=== PATIENT | male | born 1960 | race African-American/Black ===

== ENCOUNTER 2021-05-19 01:59 | Inpatient (IN) | payer OTHER ==
[2021-05-19] MEDS ORDERED: ACETAMINOPHEN 500 MG TABLET (FP) PO ONE (02:57)
[2021-05-19] MEDS ORDERED: ACETAMINOPHEN 500 MG TABLET (FP) ONE (03:06)
[2021-05-19] MEDS ORDERED: morphine CARPU-JECT 4 MG/1 ML DISP.SYRIN IVPUSH ONE (03:14)
[2021-05-19] MEDS ORDERED: morphine SULFATE 4 MG/ML VIAL ONE ×2 (03:26→08:22)
[2021-05-19 03:51] LABS: BASO % 0.5 % (0-2.0); EOS % 2.3 % (0-4.5); HEMATOCRIT 29.3 % (35.4-49); HEMOGLOBIN 9.9 GM/dL (11.7-16.9); LYMPH % 13.7 % (8-40); MCH 25.1 pg (25.7-33.7); MCHC 33.9 g/dl (32.0-35.9); MEAN PLT VOLUME 7.9 fl (7.5-11.1); MONO % 7.7 % (3.8-10.2); NEUT % 75.8 % (42.8-82.8); PLATELET COUNT 331 10^3/uL (134-434); RBC 3.95 M/mm3 (4.00-5.60); RDW 16.7 % (11.9-15.9); WHITE BLOOD COUNT 11.9 K/mm3 (4.0-10.0)
[2021-05-19 03:53] VITALS: BMI 32.3
[2021-05-19 04:00] LABS: INR 1.08 (0.83-1.09); PROTHROMBIN TIME (PATIENT) 12.4 SEC (9.7-13.0)
[2021-05-19 04:10] LABS: ALBUMIN 3.8 g/dl (3.4-5.0); BLOOD UREA NITROGEN 11.8 mg/dL (7-18); CALCIUM 8.6 mg/dL (8.5-10.1)
[2021-05-19 04:15] LABS: BILIRUBIN,TOTAL 1.2 mg/dL (0.2-1); TOT PROT 7.4 g/dl (6.4-8.2)
[2021-05-19] MEDS ORDERED: morphine SULFATE 4 MG/ML VIAL IVPUSH PRN (05:13)
[2021-05-19] MEDS ORDERED: LACTATED RINGERS SOLUTION 1,000 ML IV SCH (05:15)
[2021-05-19] MEDS ORDERED: ACETAMINOPHEN 1000 MG/100 ML BAG IVPB PRN ×2 (05:19→22:42)
[2021-05-19] MEDS ORDERED: ONDANSETRON 4 MG/2 ML VIAL IVPUSH PRN ×2 (05:44→22:42)
[2021-05-19 06:39] LABS: CALCIUM 8.8 mg/dL (8.5-10.1)
[2021-05-19 06:40] LABS: ALBUMIN 4.1 g/dl (3.4-5.0); BLOOD UREA NITROGEN 12.1 mg/dL (7-18); MAGNESIUM 2.2 mg/dL (1.8-2.4)
[2021-05-19 06:41] LABS: BASO % 0.3 % (0-2.0); EOS % 0.5 % (0-4.5); HEMATOCRIT 30.1 % (35.4-49); MCH 24.8 pg (25.7-33.7); MCHC 33.3 g/dl (32.0-35.9); MEAN CELL VOLUME 74.4 fl (80-96); MEAN PLT VOLUME 8.3 fl (7.5-11.1); MONO % 5.8 % (3.8-10.2); NEUT % 83.4 % (42.8-82.8); PLATELET COUNT 350 10^3/uL (134-434); RBC 4.05 M/mm3 (4.00-5.60); RDW 16.5 % (11.9-15.9); WHITE BLOOD COUNT 14.4 K/mm3 (4.0-10.0)
[2021-05-19 06:43] LABS: PHOSPHOROUS 2.8 mg/dL (2.5-4.9)
[2021-05-19 06:44] LABS: BILIRUBIN,TOTAL 1.4 mg/dL (0.2-1)
[2021-05-19 06:45] LABS: TOT PROT 7.7 g/dl (6.4-8.2)
[2021-05-19] MEDS: INSULIN SLIDING SCALE (NOVOLOG) 1 VIAL SQ SCH ×4 (08:08→22:57)
[2021-05-19] MEDS ORDERED: FOLIC ACID 1 MG TABLET (FP) ONE (08:21)
[2021-05-19 08:34] LABS: EPI CELLS 3 /uL (0-25.1); HYALINE CASTS 0 /uL (0-3.1); PH,URINE 5.5 (5.0-8.0); URINE APPEARANCE CLEAR; URINE BACTERIA 3 /uL (0-1359); URINE BILIRUBIN NEGATIVE (NEGATIVE); URINE COLOR YELLOW; URINE GLUCOSE (UA) NEGATIVE (NEGATIVE); URINE KETONE NEGATIVE (NEGATIVE); URINE LEUK ESTERASE NEGATIVE (NEGATIVE); URINE NITRITE NEGATIVE (NEGATIVE); URINE PROTEIN 1+ (NEGATIVE); URINE RBC 5 /uL (0-23.9); URINE UROBILINOGEN 0.2 mg/dL (0.2-1.0); URINE WBC 3 /uL (0-25.8)
[2021-05-19] MEDS ORDERED: FOLIC ACID 1 MG TABLET (FP) PO SCH (10:00)
[2021-05-19 10:50] LABS: RETICULOCYTES 1.96 % (0.5-1.5)
[2021-05-19] MEDS ORDERED: DEXMEDETOMIDINE HCL 200 MCG/2 ML IVPB ONE (17:43)
[2021-05-19] MEDS ORDERED: BUPIVACAINE HCL/PF 0.5% (5MG/ML) 10 ML VIAL ONE ×2 (17:43→17:46)
[2021-05-19] MEDS ORDERED: LIDOCAINE HCL 1%, 10 MG/ML (20ML VIAL) ONE (17:46)
[2021-05-19] MEDS ORDERED: MIDAZOLAM HCL 2 MG/2 ML SINGLE DOSE VIAL ONE (17:55)
[2021-05-19] MEDS ORDERED: PROPOFOL 20 ML ONE ×8 (17:56→21:45)
[2021-05-19] MEDS ORDERED: ceFAZolin SODIUM 1 GM VIAL IVPB ONE (18:20)
[2021-05-19] MEDS ORDERED: ePHEDrine SULFATE 50 MG/1 ML AMPULE ONE (18:23)
[2021-05-19] MEDS ORDERED: LIDOCAINE HCL 1%, 10 MG/ML (50 mL VIAL) INF ONE (22:14)
[2021-05-19] MEDS ORDERED: BUPIVACAINE HCL/PF 0.5% (5 MG/ML) 30 ML VIAL IJ ONE (22:15)
[2021-05-19] MEDS ORDERED: ACETAMINOPHEN INJECTION 100 ML IVPB ONE (23:10)
[2021-05-19] MEDS: LACTATED RINGERS SOLUTION 1,000 ML IV SCH (23:40)
[2021-05-20] MEDS ORDERED: ceFAZolin SODIUM 1 GM VIAL ONE ×3 (05:20→18:25)
[2021-05-20] MEDS ORDERED: DEXTROSE 5%-WATER - 50 ML IVPB ONE ×3 (05:20→18:25)
[2021-05-20] MEDS: LACTATED RINGERS SOLUTION 1,000 ML IV SCH ×2 (06:02→18:29)
[2021-05-20] MEDS: CHOLECALCIFEROL (VIT D3) 1,000 UNIT (25 MCG) TABLET PO SCH ×2 (06:03→11:47)
[2021-05-20] MEDS: CEFAZOLIN 1 GM in DEXTROSE 5%-WATER - 50 ML IVPB SCH ×3 (06:04→18:28)
[2021-05-20] MEDS: INSULIN SLIDING SCALE (NOVOLOG) 1 VIAL SQ SCH ×4 (06:17→21:18)
[2021-05-20 08:33] LABS: HEMATOCRIT 26.5 % (35.4-49); HEMOGLOBIN 9.4 GM/dL (11.7-16.9); MCH 25.9 pg (25.7-33.7); MCHC 35.5 g/dl (32.0-35.9); MEAN CELL VOLUME 73.1 fl (80-96); MEAN PLT VOLUME 8.5 fl (7.5-11.1); PLATELET COUNT 270 10^3/uL (134-434); RBC 3.62 M/mm3 (4.00-5.60); RDW 16.9 % (11.9-15.9); WHITE BLOOD COUNT 14.7 K/mm3 (4.0-10.0)
[2021-05-20 08:50] LABS: CALCIUM 8.6 mg/dL (8.5-10.1)
[2021-05-20 08:51] LABS: ALBUMIN 3.8 g/dl (3.4-5.0)
[2021-05-20 08:56] LABS: BILIRUBIN,TOTAL 1.5 mg/dL (0.2-1)
[2021-05-20] MEDS ORDERED: FOLIC ACID 1 MG TABLET (FP) PO SCH (10:00)
[2021-05-20] MEDS ORDERED: PATIENT'S OWN MEDICATION (NON-FORMULARY) (Amlodipine/Valsartan [Exforge 5-320 Mg Tablet] 1 PO SCH (10:00)
[2021-05-20] MEDS ORDERED: amLODIPine BESYLATE 5 MG TABLET (FP) PO SCH (10:00)
[2021-05-20] MEDS ORDERED: VALSARTAN 160 MG TABLET PO SCH (10:00)
[2021-05-20] MEDS: morphine SULFATE 4 MG/ML VIAL IVPUSH PRN (11:48)
[2021-05-20] MEDS: VALSARTAN 160 MG TABLET PO SCH (11:48)
[2021-05-20] MEDS: FOLIC ACID 1 MG TABLET (FP) PO SCH (11:50)
[2021-05-20] MEDS: amLODIPine BESYLATE 5 MG TABLET (FP) PO SCH (11:51)
[2021-05-20] MEDS: DOCUSATE SODIUM 100 MG CAPSULE (FP) PO SCH (21:28)
[2021-05-20] MEDS: ENOXAPARIN NA (PORCINE) 40 MG/0.4 ML DISP.SYRIN SQ SCH (21:28)
[2021-05-21] MEDS: morphine SULFATE 4 MG/ML VIAL IVPUSH PRN ×3 (01:12→20:51)
[2021-05-21] MEDS ORDERED: ceFAZolin SODIUM 1 GM VIAL ONE (01:16)
[2021-05-21] MEDS ORDERED: DEXTROSE 5%-WATER - 50 ML IVPB ONE (01:16)
[2021-05-21] MEDS: CEFAZOLIN 1 GM in DEXTROSE 5%-WATER - 50 ML IVPB SCH (01:20)
[2021-05-21] MEDS: LACTATED RINGERS SOLUTION 1,000 ML IV SCH ×3 (02:52→23:40)
[2021-05-21] MEDS: DOCUSATE SODIUM 100 MG CAPSULE (FP) PO SCH ×3 (06:23→21:02)
[2021-05-21] MEDS: INSULIN SLIDING SCALE (NOVOLOG) 1 VIAL SQ SCH ×4 (06:24→21:02)
[2021-05-21] MEDS: FERROUS SO4 325 MG TABLET (FP) PO SCH (08:40)
[2021-05-21 09:23] LABS: HEMATOCRIT 26.5 % (35.4-49); HEMOGLOBIN 8.9 GM/dL (11.7-16.9); MCHC 33.7 g/dl (32.0-35.9); MEAN CELL VOLUME 74.1 fl (80-96); MEAN PLT VOLUME 8.6 fl (7.5-11.1); PLATELET COUNT 288 10^3/uL (134-434); RBC 3.57 M/mm3 (4.00-5.60); RDW 16.5 % (11.9-15.9); WHITE BLOOD COUNT 17.5 K/mm3 (4.0-10.0)
[2021-05-21] MEDS: ENOXAPARIN NA (PORCINE) 40 MG/0.4 ML DISP.SYRIN SQ SCH (09:31)
[2021-05-21] MEDS: VALSARTAN 160 MG TABLET PO SCH (09:32)
[2021-05-21] MEDS: CHOLECALCIFEROL (VIT D3) 1,000 UNIT (25 MCG) TABLET PO SCH (09:32)
[2021-05-21] MEDS: amLODIPine BESYLATE 5 MG TABLET (FP) PO SCH (09:32)
[2021-05-21] MEDS: FOLIC ACID 1 MG TABLET (FP) PO SCH (09:32)
[2021-05-21 09:57] LABS: ALBUMIN 3.6 g/dl (3.4-5.0); BLOOD UREA NITROGEN 8.7 mg/dL (7-18); CALCIUM 8.7 mg/dL (8.5-10.1)
[2021-05-21 10:01] LABS: CREATININE 0.9 mg/dL (0.55-1.3)
[2021-05-21 10:02] LABS: BILIRUBIN,TOTAL 2.6 mg/dL (0.2-1)
[2021-05-21 10:58] LABS: EPI CELLS 3 /uL (0-25.1); HYALINE CASTS 0 /uL (0-3.1); URINE APPEARANCE CLEAR; URINE BACTERIA 0 /uL (0-1359); URINE BILIRUBIN NEGATIVE (NEGATIVE); URINE COLOR YELLOW; URINE GLUCOSE (UA) NEGATIVE (NEGATIVE); URINE KETONE 1+ (NEGATIVE); URINE LEUK ESTERASE NEGATIVE (NEGATIVE); URINE NITRITE NEGATIVE (NEGATIVE); URINE PROTEIN 1+ (NEGATIVE); URINE RBC 5 /uL (0-23.9); URINE WBC 1 /uL (0-25.8)
[2021-05-21] MEDS: ACETAMINOPHEN 325 MG TABLET (FP) PO PRN (20:54)
[2021-05-22] MEDS: DOCUSATE SODIUM 100 MG CAPSULE (FP) PO SCH ×3 (05:15→22:11)
[2021-05-22] MEDS: INSULIN SLIDING SCALE (NOVOLOG) 1 VIAL SQ SCH ×4 (07:15→22:14)
[2021-05-22] MEDS: FERROUS SO4 325 MG TABLET (FP) PO SCH (08:08)
[2021-05-22] MEDS: amLODIPine BESYLATE 5 MG TABLET (FP) PO SCH (09:13)
[2021-05-22] MEDS: CHOLECALCIFEROL (VIT D3) 1,000 UNIT (25 MCG) TABLET PO SCH (09:13)
[2021-05-22] MEDS: ENOXAPARIN NA (PORCINE) 40 MG/0.4 ML DISP.SYRIN SQ SCH (09:14)
[2021-05-22] MEDS: FOLIC ACID 1 MG TABLET (FP) PO SCH (09:14)
[2021-05-22] MEDS: VALSARTAN 160 MG TABLET PO SCH (09:14)
[2021-05-22] MEDS: LACTATED RINGERS SOLUTION 1,000 ML IV SCH (09:18)
[2021-05-22 09:55] LABS: BASO % 0.4 % (0-2.0); EOS % 0.8 % (0-4.5); HEMATOCRIT 25.4 % (35.4-49); HEMOGLOBIN 8.7 GM/dL (11.7-16.9); LYMPH % 9.9 % (8-40); MCH 25.1 pg (25.7-33.7); MCHC 34.3 g/dl (32.0-35.9); MEAN CELL VOLUME 73.2 fl (80-96); MEAN PLT VOLUME 8.9 fl (7.5-11.1); MONO % 11.5 % (3.8-10.2); NEUT % 77.4 % (42.8-82.8); PLATELET COUNT 274 10^3/uL (134-434); RBC 3.47 M/mm3 (4.00-5.60); RDW 16.5 % (11.9-15.9); WHITE BLOOD COUNT 17.6 K/mm3 (4.0-10.0)
[2021-05-22 10:18] LABS: ALBUMIN 3.3 g/dl (3.4-5.0); CALCIUM 8.6 mg/dL (8.5-10.1)
[2021-05-22 10:22] LABS: BILIRUBIN,TOTAL 2.4 mg/dL (0.2-1); TOT PROT 6.7 g/dl (6.4-8.2)
[2021-05-22] MEDS: morphine SULFATE 4 MG/ML VIAL IVPUSH PRN ×2 (11:43→22:23)
[2021-05-22 16:19] LABS: BF WBC & OTHER NUCLEATED CELLS 804 /mm3
[2021-05-22 16:26] LABS: BODY FLUID MACROPHAGES 16 %; BODY FLUID MONOCYTE 10 %
[2021-05-22 16:38] LABS: CRYSTALS,SYNOVIAL FLUID NEGATIVE
[2021-05-23] MEDS: DOCUSATE SODIUM 100 MG CAPSULE (FP) PO SCH ×3 (06:24→22:53)
[2021-05-23] MEDS: ENOXAPARIN NA (PORCINE) 40 MG/0.4 ML DISP.SYRIN SQ SCH (09:59)
[2021-05-23] MEDS: FOLIC ACID 1 MG TABLET (FP) PO SCH (10:00)
[2021-05-23] MEDS: amLODIPine BESYLATE 5 MG TABLET (FP) PO SCH (10:00)
[2021-05-23] MEDS: FERROUS SO4 325 MG TABLET (FP) PO SCH (10:00)
[2021-05-23] MEDS: VALSARTAN 160 MG TABLET PO SCH (10:00)
[2021-05-23] MEDS: CHOLECALCIFEROL (VIT D3) 1,000 UNIT (25 MCG) TABLET PO SCH (10:00)
[2021-05-23 10:24] LABS: BASO % 0.2 % (0-2.0); EOS % 2.1 % (0-4.5); HEMATOCRIT 24.9 % (35.4-49); HEMOGLOBIN 8.3 GM/dL (11.7-16.9); LYMPH % 10.6 % (8-40); MCH 24.5 pg (25.7-33.7); MCHC 33.4 g/dl (32.0-35.9); MEAN CELL VOLUME 73.4 fl (80-96); MEAN PLT VOLUME 8.8 fl (7.5-11.1); MONO % 12.1 % (3.8-10.2); PLATELET COUNT 289 10^3/uL (134-434); RBC 3.39 M/mm3 (4.00-5.60); RDW 16.8 % (11.9-15.9); WHITE BLOOD COUNT 15.2 K/mm3 (4.0-10.0)
[2021-05-23 10:55] LABS: CALCIUM 8.5 mg/dL (8.5-10.1)
[2021-05-23 10:56] LABS: BLOOD UREA NITROGEN 10.4 mg/dL (7-18)
[2021-05-23 11:01] LABS: BILIRUBIN,TOTAL 1.9 mg/dL (0.2-1); TOT PROT 6.6 g/dl (6.4-8.2)
[2021-05-23] MEDS: INSULIN SLIDING SCALE (NOVOLOG) 1 VIAL SQ SCH ×4 (12:05→22:59)
[2021-05-23] MEDS: morphine SULFATE 4 MG/ML VIAL IVPUSH PRN ×2 (14:24→22:59)
[2021-05-24] MEDS: INSULIN SLIDING SCALE (NOVOLOG) 1 VIAL SQ SCH ×4 (06:08→21:56)
[2021-05-24] MEDS: DOCUSATE SODIUM 100 MG CAPSULE (FP) PO SCH ×3 (06:08→21:56)
[2021-05-24 08:01] LABS: HEMATOCRIT 22.9 % (35.4-49); HEMOGLOBIN 7.9 GM/dL (11.7-16.9); MCH 25.1 pg (25.7-33.7); MCHC 34.5 g/dl (32.0-35.9); MEAN CELL VOLUME 72.7 fl (80-96); MEAN PLT VOLUME 8.2 fl (7.5-11.1); PLATELET COUNT 348 10^3/uL (134-434); RBC 3.15 M/mm3 (4.00-5.60); RDW 17.2 % (11.9-15.9); WHITE BLOOD COUNT 12.6 K/mm3 (4.0-10.0)
[2021-05-24 08:25] LABS: BLOOD UREA NITROGEN 10.4 mg/dL (7-18); CALCIUM 8.5 mg/dL (8.5-10.1)
[2021-05-24 08:27] LABS: CREATININE 0.9 mg/dL (0.55-1.3)
[2021-05-24 08:28] LABS: BILIRUBIN,TOTAL 1.5 mg/dL (0.2-1); TOT PROT 6.3 g/dl (6.4-8.2)
[2021-05-24] MEDS: FERROUS SO4 325 MG TABLET (FP) PO SCH (08:30)
[2021-05-24] MEDS: ENOXAPARIN NA (PORCINE) 40 MG/0.4 ML DISP.SYRIN SQ SCH (10:10)
[2021-05-24] MEDS: amLODIPine BESYLATE 5 MG TABLET (FP) PO SCH (10:20)
[2021-05-24] MEDS: CHOLECALCIFEROL (VIT D3) 1,000 UNIT (25 MCG) TABLET PO SCH (10:20)
[2021-05-24] MEDS: VALSARTAN 160 MG TABLET PO SCH (10:20)
[2021-05-24] MEDS: FOLIC ACID 1 MG TABLET (FP) PO SCH (10:20)
[2021-05-24] MEDS ORDERED: INSULIN (NOVOLOG) ASPART 100 UNITS/ML 10ML VIAL ONE (11:18)
[2021-05-24] MEDS: morphine SULFATE 4 MG/ML VIAL IVPUSH PRN (16:12)
[2021-05-24] MEDS: ACETAMINOPHEN 325 MG TABLET (FP) PO PRN (21:54)
[2021-05-24] MEDS: oxyCODONE HCL 5 MG TABLET PO PRN (21:55)
[2021-05-25] MEDS: DOCUSATE SODIUM 100 MG CAPSULE (FP) PO SCH ×2 (05:46→13:55)
[2021-05-25] MEDS: INSULIN SLIDING SCALE (NOVOLOG) 1 VIAL SQ SCH ×3 (06:00→17:01)
[2021-05-25 08:39] LABS: MCH 25.2 pg (25.7-33.7); MCHC 34.8 g/dl (32.0-35.9); MEAN CELL VOLUME 72.4 fl (80-96); MEAN PLT VOLUME 8.1 fl (7.5-11.1); PLATELET COUNT 373 10^3/uL (134-434); RBC 3.18 M/mm3 (4.00-5.60); RDW 17.7 % (11.9-15.9); WHITE BLOOD COUNT 11.6 K/mm3 (4.0-10.0)
[2021-05-25] MEDS: VALSARTAN 160 MG TABLET PO SCH (09:39)
[2021-05-25] MEDS: FERROUS SO4 325 MG TABLET (FP) PO SCH (09:39)
[2021-05-25] MEDS: amLODIPine BESYLATE 5 MG TABLET (FP) PO SCH (09:40)
[2021-05-25] MEDS: ENOXAPARIN NA (PORCINE) 40 MG/0.4 ML DISP.SYRIN SQ SCH (09:40)
[2021-05-25] MEDS: CHOLECALCIFEROL (VIT D3) 1,000 UNIT (25 MCG) TABLET PO SCH (09:40)
[2021-05-25] MEDS: FOLIC ACID 1 MG TABLET (FP) PO SCH (09:40)
[2021-05-25] MEDS ORDERED: INSULIN (NOVOLOG) ASPART 100 UNITS/ML 10ML VIAL ONE (11:44)
[2021-05-25 12:08] LABS: SARS-CoV-2 NAA Not Detected (Not Detected)
[2021-05-25 15:28] VITALS: BP 148/77; PULSE 78; TEMP 99.2
[2021-05-25] MEDS: oxyCODONE HCL 5 MG TABLET PO PRN (17:33)
[2021-05-25] MEDS: ACETAMINOPHEN 325 MG TABLET (FP) PO PRN (17:57)
== END 2021-05-25 18:39 | DRG 494 ==
LOC: JER 01:59 → JERBED 04:37 → J8W 13:53
PROVIDERS: ADMIT Internal Medicine; ATTEND Internal Medicine
PROC: 0QSK04Z Reposition Left Fibula with Internal Fixation Device, Open Approach (ICD-10-PCS; 2021-05-19)
PROC: 0QSH06Z Reposition Left Tibia with Intramedullary Internal Fixation Device, Open Approach (ICD-10-PCS; principal; 2021-05-19 12:00)
DX: S82.452A Displaced comminuted fracture of shaft of left fibula, initial encounter for closed fracture (principal); S82.252A Displaced comminuted fracture of shaft of left tibia, initial encounter for closed fracture; E11.9 Type 2 diabetes mellitus without complications; D57.3 Sickle-cell trait; W18.39XA Other fall on same level, initial encounter; I10 Essential (primary) hypertension; Y92.89 Other specified places as the place of occurrence of the external cause; R50.82 Postprocedural fever
CPT/HCPCS: 36415; 70450-TC; 71045-TC-FY; 72125-TC; 73030-TC-LT-FY; 73590-TC-LT-FY; 73610-TC-LT-FY; 73630-TC-LT; 73700-TC-RT; 80053; 81003; 82728; 82962; 83540; 83550; 83735; 84100; 85025; 85027; 85045; 85610; 85730; 86850; 86900; 86901; 87040; 87070; 87075; 87086; 87205; 89060; 93005; 93010; 93970-TC; 94010; 94760; 97116-GP; 97162-GP; 99285-25; C9803-CS; U0003; U0005